=== PATIENT | male | born 1950 | race African-American/Black ===

== ENCOUNTER → 2018-07-01 | Outpatient (CLI) | payer OTHER ==
[~2018-07-01] MED LIST: PLENDIL; WARFARIN SOD
[2018-07-01 09:38] LABS: BUN/Creatinine Ratio 14.4; Calcium 9.8 mg/dL (8.5-10.1); Magnesium 2.6 mg/dL (1.6-2.6); Potassium 3.4 mmol/L (3.5-5.1)
== END | disposition home or self-care (01) ==
LOC: LAB 08:16
PROVIDERS: ATTEND Internal Medicine
DX: I10 Essential (primary) hypertension (principal); N40.0 Benign prostatic hyperplasia without lower urinary tract symptoms
CPT/HCPCS: 36415; 80048; 83735; 84153

== ENCOUNTER → 2020-02-01 | Outpatient (CLI) | payer OTHER ==
[2020-02-01 10:29] LABS: Urine Bacteria NONE SEEN /hpf (None Seen); Urine Blood Negative /uL (Negative); Urine Specific Gravity 1.011 (1.001-1.035); Urine WBC 1 /hpf (0 - 3)
[2020-02-01 10:36] LABS: Basophils # (auto) 0.1 10 ^3/uL (0-0.2); Basophils % (auto) 0.7 % (0.0-2.0); Eosinophils # (auto) 0 10 ^3/uL (0-0.8); Eosinophils % (auto) 0.5 % (0.0-7.0); Hematocrit 47.3 % (41.0-53.0); Hemoglobin 15.7 g/dL (13.5-17.5); Lymphocytes # (auto) 4.8 10 ^3/uL (0.4-5.4); Mean Corpuscular Hemoglobin 31.1 pg (28.0-32.0); Mean Corpuscular Hgb Conc. 33.2 g/dL (32.0-36.0); Mean Corpuscular Volume 93.7 fL (80.0-100.0); Monocytes # (auto) 0.5 10 ^3/uL (0-1.3); Monocytes % (auto) 5.6 % (0.0-12.0); Neutrophils # (auto) 3.2 10 ^3/uL (1.6-8.6); Neutrophils % (auto) 37.5 % (37.0-80.0); Nucleated Red Blood Cells % 0.1 %; Platelet Count (auto) 267 10^3/uL (140-450); Red Blood Cells 5.04 10^6/uL (4.5-5.90); Red Cell Distribution Width 14.2 % (11.8-14.3); White Blood Cell 8.6 10^3/uL (4.4-10.8)
[2020-02-01 10:44] LABS: Lymphocytes % (auto) 55.7 % (10.0-50.0)
[2020-02-01 11:17] LABS: Albumin 4.5 g/dL (3.4-5.0); Calcium 9.9 mg/dL (8.5-10.1); Potassium 3.4 mmol/L (3.5-5.1)
[2020-02-01 11:21] LABS: BUN/Creatinine Ratio 7.8; Bilirubin, Total 0.5 mg/dL (0.2-1.0); Total Protein 8.9 g/dL (6.4-8.2); Uric Acid 5.1 mg/dL (3.5-7.2)
== END | disposition home or self-care (01) ==
LOC: LAB 09:59
PROVIDERS: ATTEND Internal Medicine
DX: N40.0 Benign prostatic hyperplasia without lower urinary tract symptoms (principal); I10 Essential (primary) hypertension; M25.50 Pain in unspecified joint; R93.2 Abnormal findings on diagnostic imaging of liver and biliary tract
CPT/HCPCS: 36415; 80053; 81001; 82105; 84153; 84550; 85025; 85652; 86200; 86431

== ENCOUNTER → 2020-06-26 | Day surgery (SDC) | payer OTHER ==
[2020-05-31 10:38] LABS: Hematocrit 44.9 % (41.0-53.0); Hemoglobin 15.2 g/dL (13.5-17.5); Mean Corpuscular Hemoglobin 31.6 pg (28.0-32.0); Mean Corpuscular Hgb Conc. 33.9 g/dL (32.0-36.0); Mean Corpuscular Volume 93.1 fL (80.0-100.0); Platelet Count (auto) 249 10^3/uL (140-450); Red Blood Cells 4.82 10^6/uL (4.5-5.90); Red Cell Distribution Width 14.2 % (11.8-14.3); White Blood Cell 7.5 10^3/uL (4.4-10.8)
[2020-05-31 10:43] LABS: Band Neutrophils % (manual) 0; Basophils % (manual) 0 (0.0-2.0); Blast Cells 0; Eosinophils % (manual) 0 (0-7); Metamyelocytes % 0; Myelocytes % 0; Promyelocytes % 0; Reactive Lymphocytes 0
[2020-05-31 10:54] LABS: INR 1.92 (0.9-1.15)
[2020-05-31 11:10] LABS: Lymphocytes % (manual) 54 (10.0-50.0); Monocytes % (manual) 1 (0-12)
[2020-06-21 09:39] LABS: Basophils # (auto) 0 10 ^3/uL (0-0.2); Basophils % (auto) 0.6 % (0.0-2.0); Eosinophils # (auto) 0 10 ^3/uL (0-0.8); Eosinophils % (auto) 0.5 % (0.0-7.0); Hematocrit 45.4 % (41.0-53.0); Hemoglobin 15.4 g/dL (13.5-17.5); Lymphocytes # (auto) 3.2 10 ^3/uL (0.4-5.4); Lymphocytes % (auto) 50.4 % (10.0-50.0); Mean Corpuscular Hemoglobin 31.6 pg (28.0-32.0); Mean Corpuscular Hgb Conc. 33.9 g/dL (32.0-36.0); Mean Corpuscular Volume 93.3 fL (80.0-100.0); Monocytes # (auto) 0.3 10 ^3/uL (0-1.3); Monocytes % (auto) 5.2 % (0.0-12.0); Neutrophils # (auto) 2.7 10 ^3/uL (1.6-8.6); Neutrophils % (auto) 43.3 % (37.0-80.0); Platelet Count (auto) 276 10^3/uL (140-450); Red Blood Cells 4.86 10^6/uL (4.5-5.90); Red Cell Distribution Width 14.2 % (11.8-14.3); White Blood Cell 6.3 10^3/uL (4.4-10.8)
[2020-06-21 09:54] LABS: INR 1.03 (0.9-1.15); Partial Thromboplastin Time 25.6 sec (23.0-31.2)
[~2020-06-26] VITALS: Ht 182.9 cm; Wt 72.6 kg
[~2020-06-26] MED LIST changes: +AMLO5TAB15 PO; +HYDR25TA4 PO; +MULT-928 PO; -PLENDIL; +POTA1TAB61 PO; +SODIUM CHLORIDE LOCK 10 ML ONE; +TAMS1CAP25 PO; +WARF5TAB71 PO; -WARFARIN SOD; +diphenhdrAMINE HCL 50 MG/1 ML VL ONE
[2020-06-26] MEDS: MIDAZOLAM HCL 5 MG/ML-1ML VIAL ONE ×3 (10:15→10:20)
[2020-06-26] MEDS: fentaNYL CITRATE 100 MCG/2 ML VL ONE ×3 (10:15→10:20)
[2020-06-26 11:20] VITALS: BP 137/77
== END | disposition home or self-care (01) ==
LOC: GI 09:46
PROVIDERS: ATTEND Internal Medicine Gastroenterology
DX: Z12.11 Encounter for screening for malignant neoplasm of colon (principal); K63.5 Polyp of colon; K57.30 Diverticulosis of large intestine without perforation or abscess without bleeding; K64.8 Other hemorrhoids; I10 Essential (primary) hypertension; E87.6 Hypokalemia; Z79.899 Other long term (current) drug therapy; Z20.828 Contact with and (suspected) exposure to other viral communicable diseases; Z86.010 Personal history of colon polyps; Z85.118 Personal history of other malignant neoplasm of bronchus and lung; Z86.718 Personal history of other venous thrombosis and embolism; Z98.890 Other specified postprocedural states
CPT/HCPCS: 36415; 45380; 85007; 85025; 85027; 85610; 85730; 88305; J2250; J3010; J7030; U0003; 99152

== ENCOUNTER → 2020-11-15 | Outpatient (CLI) | payer OTHER ==
[~2020-11-15] MED LIST changes: +AMLO-489 PO; -AMLO5TAB15 PO; -SODIUM CHLORIDE LOCK 10 ML ONE; -diphenhdrAMINE HCL 50 MG/1 ML VL ONE
[2020-11-15 09:44] LABS: Urine WBC None Seen /hpf (0 - 3)
[2020-11-15 09:48] LABS: Hematocrit 45.3 % (41.0-53.0); Hemoglobin 15.5 g/dL (13.5-17.5); Mean Corpuscular Hemoglobin 31.7 pg (28.0-32.0); Mean Corpuscular Hgb Conc. 34.3 g/dL (32.0-36.0); Mean Corpuscular Volume 92.5 fL (80.0-100.0); Platelet Count (auto) 242 10^3/uL (140-450); White Blood Cell 7.2 10^3/uL (4.4-10.8)
[2020-11-15 09:52] LABS: Basophils % (manual) 0 (0.0-2.0); Blast Cells 0; Metamyelocytes % 0; Myelocytes % 0; Promyelocytes % 0
[2020-11-15 09:55] LABS: Urine Bacteria NONE SEEN /hpf (None Seen); Urine Blood Negative /uL (Negative); Urine Mucus FEW (None Seen); Urine Specific Gravity 1.023 (1.001-1.035)
[2020-11-15 10:28] LABS: Calcium 9.6 mg/dL (8.5-10.1); Potassium 3.7 mmol/L (3.5-5.1)
[2020-11-15 10:34] LABS: BUN/Creatinine Ratio 9.9; Bilirubin, Total 0.6 mg/dL (0.2-1.0)
[2020-11-15 11:43] LABS: Band Neutrophils % (manual) 7; Eosinophils % (manual) 2 (0-7); Lymphocytes % (manual) 39 (10.0-50.0); Monocytes % (manual) 5 (0-12); Reactive Lymphocytes 13
[2020-11-15 14:08] LABS: Free T4 (Free Thyroxine) 1.43 ng/dL (0.89-1.76)
[2020-11-15 14:09] LABS: Folate (Folic Acid) > 24.00 ng/mL (5.38-24)
[2020-11-16 07:06] LABS: RPR Non Reactive (Non Reactive)
== END | disposition home or self-care (01) ==
LOC: LAB 09:27
PROVIDERS: ATTEND Internal Medicine
DX: I10 Essential (primary) hypertension (principal); R41.89 Other symptoms and signs involving cognitive functions and awareness
CPT/HCPCS: 36415; 80053; 80061; 81001; 82607; 82746; 84439; 84443; 85007; 85027; 85652; 86592

== ENCOUNTER 2021-03-27 07:38 | Inpatient (IN) | payer OTHER ==
[2021-03-22 10:22] LABS: Urine WBC None Seen /hpf (0 - 3)
[2021-03-22 10:35] LABS: Urine Bacteria NONE SEEN /hpf (None Seen); Urine Blood Negative /uL (Negative); Urine Specific Gravity 1.007 (1.001-1.035)
[2021-03-22 10:39] LABS: Hematocrit 44.4 % (41.0-53.0); Hemoglobin 15.7 g/dL (13.5-17.5); Mean Corpuscular Hemoglobin 32.6 pg (28.0-32.0); Mean Corpuscular Hgb Conc. 35.3 g/dL (32.0-36.0); Mean Corpuscular Volume 92.5 fL (80.0-100.0); Red Cell Distribution Width 13.9 % (11.8-14.3); White Blood Cell 7.3 10^3/uL (4.4-10.8)
[2021-03-22 10:48] LABS: Band Neutrophils % (manual) 0; Basophils % (manual) 0 (0.0-2.0); Blast Cells 0; Metamyelocytes % 0; Myelocytes % 0; Promyelocytes % 0; Reactive Lymphocytes 0
[2021-03-22 11:24] LABS: BUN/Creatinine Ratio 7.9; Bilirubin, Total 0.8 mg/dL (0.2-1.0); Calcium 9.5 mg/dL (8.5-10.1); Total Protein 8.2 g/dL (6.4-8.2)
[2021-03-22 11:40] LABS: Potassium 2.9 mmol/L (3.5-5.1)
[2021-03-22 12:13] LABS: Eosinophils % (manual) 2 (0-7); Lymphocytes % (manual) 63 (10.0-50.0); Monocytes % (manual) 9 (0-12)
[~2021-03-27] VITALS: Ht 182.9 cm; Wt 76.9 kg
[~2021-03-27 07:38] MED LIST changes: +DONE5TAB11 PO; +OMEG500C PO
[2021-03-27] MEDS ORDERED: SODIUM CHLORIDE LOCK 10 ML ONE (09:23)
[2021-03-27] MEDS ORDERED: fentaNYL CITRATE 100 MCG/2 ML VL ONE (09:23)
[2021-03-27] MEDS ORDERED: MIDAZOLAM HCL 2MG/2ML 2ml VIAL (1mg/ml) ONE ×2 (09:23→11:00)
[2021-03-27] MEDS ORDERED: PROPOFOL 10 MG/ML 20 ML IV ONE (09:23)
[2021-03-27] MEDS ORDERED: ONDANSETRON HCL 4 MG/2 ML VIAL ONE (09:23)
[2021-03-27] MEDS ORDERED: LIDOCAINE 2% (LOCAL ANESTH.) PF 5ml SDV ONE (09:24)
[2021-03-27] MEDS ORDERED: BUPIVACAINE 0.5% P/F INJ 10 ML VIAL ONE (09:40)
[2021-03-27] MEDS ORDERED: ceFAZolin 1GM VL ONE (11:10)
[2021-03-27] MEDS ORDERED: ACETAMINOPHEN 500 MG TAB PO PRN (13:00)
[2021-03-27] MEDS ORDERED: ONDANSETRON HCL 4 MG/2 ML VIAL IV PRN (13:00)
[2021-03-27] MEDS ORDERED: MORPHINE SULF INJ 2 MG/ML SYRINGE 1ML IV PRN ×2 (13:00)
[2021-03-27] MEDS ORDERED: NITROGLYCERIN 0.4 MG SL TAB SL PRN (13:00)
[2021-03-27] MEDS: D5W/SOD CHL 0.45%/KCL 20MEQ 1,000 ML IV SCH (13:40)
[2021-03-27] MEDS ORDERED: cefTRIAXone 1GM/50ML D5W 50 ML IV ONE (18:00)
[2021-03-27 22:00] VITALS: BP 150/70
[2021-03-28] MEDS: D5W/SOD CHL 0.45%/KCL 20MEQ 1,000 ML IV SCH ×3 (01:37→22:23)
[2021-03-28 05:00] VITALS: BP 137/90
[2021-03-28 09:00] VITALS: BP 137/79
[2021-03-28] MEDS: PANTOPRAZOLE 40 MG/10 ML VIAL INJ IV SCH (11:35)
[2021-03-28] MEDS: amLODIPine BESYLATE 5 MG TAB PO SCH (11:37)
[2021-03-28] MEDS: DONEPEZIL HYDROCHLORIDE 5 MG TAB PO SCH (11:37)
[2021-03-28 11:56] LABS: Basophils # (auto) 0.1 10 ^3/uL (0-0.2); Basophils % (auto) 0.6 % (0.0-2.0); Eosinophils # (auto) 0 10 ^3/uL (0-0.8); Eosinophils % (auto) 0.2 % (0.0-7.0); Hematocrit 45.5 % (41.0-53.0); Hemoglobin 15.6 g/dL (13.5-17.5); Lymphocytes # (auto) 3.2 10 ^3/uL (0.4-5.4); Lymphocytes % (auto) 25.7 % (10.0-50.0); Mean Corpuscular Hemoglobin 32.2 pg (28.0-32.0); Mean Corpuscular Hgb Conc. 34.2 g/dL (32.0-36.0); Mean Corpuscular Volume 94.4 fL (80.0-100.0); Monocytes % (auto) 8.1 % (0.0-12.0); Neutrophils # (auto) 8.1 10 ^3/uL (1.6-8.6); Neutrophils % (auto) 65.4 % (37.0-80.0); Nucleated Red Blood Cells % 0.1 %; Red Blood Cells 4.82 10^6/uL (4.5-5.90); Red Cell Distribution Width 13.8 % (11.8-14.3); White Blood Cell 12.4 10^3/uL (4.4-10.8)
[2021-03-28 13:00] VITALS: BP 152/85
[2021-03-28 13:10] LABS: BUN/Creatinine Ratio 7.1; Calcium 8.9 mg/dL (8.5-10.1); Magnesium 2.1 mg/dL (1.6-2.6); Potassium 3.7 mmol/L (3.5-5.1)
[2021-03-28 16:50] VITALS: BP 140/91
[2021-03-28 21:50] VITALS: BP 148/77
[2021-03-29 05:00] VITALS: BP 138/80
[2021-03-29] MEDS: D5W/SOD CHL 0.45%/KCL 20MEQ 1,000 ML IV SCH ×2 (06:21→15:00)
[2021-03-29 09:00] VITALS: BP 156/97
[2021-03-29] MEDS: amLODIPine BESYLATE 5 MG TAB PO SCH (11:28)
[2021-03-29] MEDS: DONEPEZIL HYDROCHLORIDE 5 MG TAB PO SCH (11:28)
[2021-03-29] MEDS: PANTOPRAZOLE 40 MG/10 ML VIAL INJ IV SCH (11:29)
[2021-03-29 13:00] VITALS: BP 144/94
[2021-03-29 17:05] VITALS: BP 144/94
== END 2021-03-29 18:30 | disposition home or self-care (01) | DRG 352 ==
LOC: SUR 07:38 → OVERFLOW 12:49 → WEST WING 17:29
PROVIDERS: ADMIT Nurse Practitioner Acute Care; ATTEND Internal Medicine
PROC: 0YQA0ZZ Repair Bilateral Inguinal Region, Open Approach (ICD-10-PCS; principal; 2021-03-27 10:39)
DX: K40.20 Bilateral inguinal hernia, without obstruction or gangrene, not specified as recurrent (principal); F03.90 Unspecified dementia, unspecified severity, without behavioral disturbance, psychotic disturbance, mood disturbance, and anxiety; I10 Essential (primary) hypertension; Z86.718 Personal history of other venous thrombosis and embolism; Z20.822 Contact with and (suspected) exposure to COVID-19
CPT/HCPCS: 36415; 80048; 80053; 81001; 82962; 83036; 83735; 84132; 85007; 85025; 85027; 86850; 86900; 86901; C9113; G0378; J0690; J0696; J2001; J2250; J2405; J2704; J3490